=== PATIENT | female | born 1960 | race Two or more races ===

== ENCOUNTER → 2016-08-03 | Outpatient (CLI) | payer OTHER ==
[2016-08-03 15:49] LABS: CARCINOEMBRYONIC ANTIGEN 0.5 ng/mL (<3.0)
== END ==
LOC: OD 14:16
PROVIDERS: ATTEND Specialist
DX: C25.0 Malignant neoplasm of head of pancreas (principal)
CPT/HCPCS: 36415; 82310; 82378; 86301; 86304

== ENCOUNTER → 2016-08-25 | Outpatient (CLI) | payer OTHER | LOC: RAD 07:30 | PROVIDERS: ATTEND Internal Medicine Gastroenterology | DX: K30 Functional dyspepsia (principal) | CPT/HCPCS: 78264; A9541 ==